=== PATIENT | male | born 1995 | race Two or more races ===

== ENCOUNTER 2023-08-30 16:06 | Emergency (ER) | payer OTHER ==
[~2023-08-30] VITALS: Ht 167.6 cm; Wt 63.5 kg
[2023-08-30 16:16] VITALS: TEMP 98.4
[2023-08-30] MEDS ORDERED: CYCLOBENZAPRINE 10 MG TABLET ONE (16:58)
[2023-08-30] MEDS ORDERED: ACETAMINOPHEN 325 MG TABLET ONE (16:58)
[2023-08-30] MEDS ORDERED: ACETAMINOPHEN 325 MG TABLET PO ONE (17:00)
[2023-08-30] MEDS ORDERED: CYCLOBENZAPRINE 10 MG TABLET PO ONE (17:00)
[2023-08-30 17:31] VITALS: BP 122/67; O2SAT 100
== END 2023-08-30 17:46 | disposition home or self-care (01) ==
LOC: ER 16:06
DX: S06.0XAA Concussion with loss of consciousness status unknown, initial encounter (principal); W20.8XXA Other cause of strike by thrown, projected or falling object, initial encounter; Y93.89 Activity, other specified; Y92.89 Other specified places as the place of occurrence of the external cause; Y99.0 Civilian activity done for income or pay
CPT/HCPCS: 70450-TC